=== PATIENT | male | born 1985 | race Two or more races ===

== ENCOUNTER 2021-03-08 21:51 | Inpatient (IN) | payer OTHER ==
[~2021-03-08] VITALS: Ht 175.3 cm; Wt 92.9 kg
[2021-03-08 23:10] LABS: Basophils # (auto) 0 10 ^3/uL (0-0.2); Basophils % (auto) 0.6 % (0.0-2.0); Eosinophils # (auto) 0.2 10 ^3/uL (0-0.8); Eosinophils % (auto) 3.1 % (0.0-7.0); Hematocrit 43.3 % (41.0-53.0); Hemoglobin 14.9 g/dL (13.5-17.5); Lymphocytes # (auto) 1.7 10 ^3/uL (0.4-5.4); Lymphocytes % (auto) 24.3 % (10.0-50.0); Mean Corpuscular Hemoglobin 30.1 pg (28.0-32.0); Mean Corpuscular Hgb Conc. 34.3 g/dL (32.0-36.0); Mean Corpuscular Volume 87.8 fL (80.0-100.0); Monocytes # (auto) 0.7 10 ^3/uL (0-1.3); Monocytes % (auto) 9.9 % (0.0-12.0); Neutrophils # (auto) 4.4 10 ^3/uL (1.6-8.6); Neutrophils % (auto) 62.1 % (37.0-80.0); Nucleated Red Blood Cells % 0.1 %; Red Blood Cells 4.94 10^6/uL (4.5-5.90); Red Cell Distribution Width 12.4 % (11.8-14.3); White Blood Cell 7.1 10^3/uL (4.4-10.8)
[2021-03-08 23:33] LABS: Albumin 3.7 g/dL (3.4-5.0); Calcium 9.2 mg/dL (8.5-10.1); Potassium 4.2 mmol/L (3.5-5.1)
[2021-03-08 23:36] LABS: Bilirubin, Total 0.4 mg/dL (0.2-1.0); Total Protein 7.7 g/dL (6.4-8.2)
[2021-03-09] MEDS ORDERED: VANCOMYCIN PER PHARMACY 0 MG IV SCH (01:00)
[2021-03-09] MEDS ORDERED: DOCUSATE SOD 100 MG CAP PO PRN (01:00)
[2021-03-09] MEDS ORDERED: ONDANSETRON HCL 4 MG/2 ML VIAL IV PRN (01:00)
[2021-03-09] MEDS ORDERED: PIPERACILLIN-TAZOB 3.375GM 100 ML IV ONE (01:00)
[2021-03-09] MEDS ORDERED: HYDROmorphone HCL 2 MG/ML VL IV PRN ×2 (01:00→20:00)
[2021-03-09] MEDS ORDERED: VANCOMYCIN 1GM/250ML 250 ML IV ONE ×2 (01:00→01:30)
[2021-03-09 05:00] VITALS: BP 133/78
[2021-03-09 05:20] VITALS: BP 133/78
[2021-03-09 09:00] VITALS: BP 117/70
[2021-03-09] MEDS: ENOXAPARIN SOD 40 MG/0.4 ML SYRINGE SC SCH (10:01)
[2021-03-09] MEDS: PANTOPRAZOLE 40 MG TAB PO SCH ×2 (10:01→21:56)
[2021-03-09] MEDS: VANCOMYCIN 1GM/250ML 250 ML IV SCH ×2 (10:02→20:27)
[2021-03-09 13:00] VITALS: BP 122/71
[2021-03-09 16:48] VITALS: BP 125/68
[2021-03-09] MEDS: PIPERACILLIN-TAZOB 3.375GM 100 ML IV SCH (21:57)
[2021-03-09] MEDS: HYDROcodone-ACET 5/325MG TAB PO PRN (21:57)
[2021-03-09 22:00] VITALS: BP 119/71
[2021-03-10] MEDS: HYDROcodone-ACET 5/325MG TAB PO PRN (01:35)
[2021-03-10 05:00] VITALS: BP 114/71
[2021-03-10] MEDS: PIPERACILLIN-TAZOB 3.375GM 100 ML IV SCH ×3 (05:56→20:57)
[2021-03-10] MEDS: VANCOMYCIN 1GM/250ML 250 ML IV SCH ×2 (05:56→16:11)
[2021-03-10 09:00] VITALS: BP 108/70
[2021-03-10] MEDS: PANTOPRAZOLE 40 MG TAB PO SCH ×2 (09:07→20:57)
[2021-03-10] MEDS: ENOXAPARIN SOD 40 MG/0.4 ML SYRINGE SC SCH (10:43)
[2021-03-10 13:00] VITALS: BP 105/69
[2021-03-10 17:00] VITALS: BP 119/67
[2021-03-10 22:00] VITALS: BP 116/71
[2021-03-11] MEDS: VANCOMYCIN 1GM/250ML 250 ML IV SCH ×3 (01:53→21:40)
[2021-03-11 05:14] VITALS: BP 118/73
[2021-03-11] MEDS: PIPERACILLIN-TAZOB 3.375GM 100 ML IV SCH ×3 (05:50→22:00)
[2021-03-11 08:45] VITALS: BP 125/69
[2021-03-11] MEDS: PANTOPRAZOLE 40 MG TAB PO SCH ×2 (09:52→22:00)
[2021-03-11] MEDS: ENOXAPARIN SOD 40 MG/0.4 ML SYRINGE SC SCH (09:52)
[2021-03-11 13:00] VITALS: BP 109/63
[2021-03-11 17:00] VITALS: BP 107/69
[2021-03-11 22:00] VITALS: BP 108/60
[2021-03-12 05:00] VITALS: BP 108/63
[2021-03-12] MEDS: PIPERACILLIN-TAZOB 3.375GM 100 ML IV SCH ×3 (06:00→22:15)
[2021-03-12] MEDS: VANCOMYCIN 1GM/250ML 250 ML IV SCH (08:00)
[2021-03-12 09:00] VITALS: BP 102/51
[2021-03-12] MEDS: PANTOPRAZOLE 40 MG TAB PO SCH ×2 (09:28→22:15)
[2021-03-12] MEDS: ENOXAPARIN SOD 40 MG/0.4 ML SYRINGE SC SCH (09:29)
[2021-03-12 13:00] VITALS: BP 119/65
[2021-03-12 17:00] VITALS: BP 120/70
[2021-03-12 22:00] VITALS: BP 114/69
[2021-03-13 05:00] VITALS: BP 106/68
[2021-03-13] MEDS: PIPERACILLIN-TAZOB 3.375GM 100 ML IV SCH ×2 (06:01→14:00)
[2021-03-13 08:53] VITALS: BP 102/67
[2021-03-13] MEDS: PANTOPRAZOLE 40 MG TAB PO SCH (09:54)
[2021-03-13] MEDS: ENOXAPARIN SOD 40 MG/0.4 ML SYRINGE SC SCH (09:55)
[2021-03-13 13:00] VITALS: BP 115/66
[2021-03-13] MEDS ORDERED: AMOX500T86 PO (13:49)
[2021-03-13 17:00] VITALS: BP 110/66
== END 2021-03-13 20:35 | DRG 603 ==
LOC: ER 21:56 → EEVIPCON 21:56 → OVERFLOW 03-09 01:00 → WEST WING 03-09 03:45
PROVIDERS: ADMIT Specialist; ATTEND Internal Medicine
DX: L02.212 Cutaneous abscess of back [any part, except buttock and flank] (principal); M54.9 Dorsalgia, unspecified; Z20.822 Contact with and (suspected) exposure to COVID-19
CPT/HCPCS: 36415; 80053; 80202; 82565; 85025; 85610; 87077; 87186; 87205; 87426; 96365; 96366; 96368; G0378; J2543